=== PATIENT | female | born 1975 | race Caucasian/White ===

== ENCOUNTER 2016-08-24 11:05 | Emergency (ER) | payer OTHER ==
[~2016-08-24] VITALS: Ht 162.6 cm; Wt 90.0 kg
[2016-08-24] MEDS ORDERED: VERTIGO MED PO (11:49)
[2016-08-24] MEDS ORDERED: KETOROLAC TROMETHAMINE 60 MG/2 ML VIAL IM ONE (13:45)
[2016-08-24 14:11] VITALS: BP 120/72
== END 2016-08-24 14:13 | disposition home or self-care (01) ==
LOC: EMS 11:08
DX: S80.11XA Contusion of right lower leg, initial encounter (principal); W06.XXXA Fall from bed, initial encounter; Y93.89 Activity, other specified; Y92.89 Other specified places as the place of occurrence of the external cause; Y99.8 Other external cause status
CPT/HCPCS: 93971; 96372; 99284; J1885